=== PATIENT | female | born 2000 | race Two or more races ===

== ENCOUNTER 2023-11-17 15:28 | Emergency (ER) | payer OTHER ==
[~2023-11-17] VITALS: Ht 167.6 cm; Wt 77.1 kg
[2023-11-17] MEDS ORDERED: TETANUS & DIPHTHERIA TOX,ADULT 0.5 ML VIAL IM ONE (16:45)
== END 2023-11-17 17:25 | disposition home or self-care (01) ==
LOC: ER 15:29
DX: S81.811A Laceration without foreign body, right lower leg, initial encounter (principal); X58.XXXA Exposure to other specified factors, initial encounter; Y93.89 Activity, other specified; Y92.89 Other specified places as the place of occurrence of the external cause; Y99.8 Other external cause status

== ENCOUNTER 2024-12-17 07:02 | Outpatient (CLI) | payer OTHER | END 2024-12-17 07:12 | disposition home or self-care (01) | LOC: TOM 07:02 | PROVIDERS: ATTEND Otolaryngology | DX: R22.1 Localized swelling, mass and lump, neck (principal) ==